=== PATIENT | female | born 1995 | race African-American/Black ===

== ENCOUNTER 2018-12-19 19:58 | Emergency (ER) | payer SELFPAY ==
[2018-12-19 20:22] LABS: Urine Blood NEGATIVE (NEG); Urine Glucose NEGATIVE (NEG); Urine Protein NEGATIVE (NEG); Urine Specific Gravity 1.025 (1.005-1.030)
[2018-12-19] MEDS ORDERED: NA CHLORIDE 0.9% 1,000 ML ONE (20:26)
[2018-12-19 20:36] LABS: Absolute Lymphocytes (CBC) 2.3 K/uL (0.7-4.9); Basophils % 0.4 % (0-1.3); Hematocrit 35.1 % (36.0-45.0); Lymphocytes % 28.7 % (15.3-44.8); MPV 7.9 fL (7.6-11.3); RBC Red Blood Cell Count 4.07 M/uL (3.86-4.86)
[2018-12-19 21:04] LABS: Urine Amorphous Sediment 2+ /HPF (NONE SEEN); Urine Bacteria 20-50 /HPF (<20); Urine Culture Reflex Order REFLEXED; Urine RBC <5 /HPF (NONE SEEN)
[2018-12-19 21:09] LABS: BUN Blood Urea Nitrogen 8 mg/dL (7-18); Bicarbonate 27 mmol/L (21-32); Glucose Level 75 mg/dL (74-106); HCG, Quantitative 30859 mIU/mL (1-3); Potassium 3.6 mmol/L (3.5-5.1); Sodium Level 141 mmol/L (136-145)
--- NOTE | 2018-12-19 22:03 | ER ---
Nurse's Notes [facility] Name: Kassidy Kwon Age: 23 yrs Sex: Female : 1995 Arrival Date: 12/19/2018 Time: 20:00 Bed 7 Private MD: Diagnosis: Less than 8 weeks gestation of ;Urinary tract infection, site not specified Presentation: 12/19 20:09 Presenting complaint: Patient states: Lower pelvic pain that began yesterday, severe lp1 pain today; States vaginal discharge yellow in color with foul odor; Has not had menstrual cycle since October. Transition of care: patient was not received from another setting of care. Onset of symptoms was December 19, 2018. Risk Assessment: Do you want to hurt yourself or someone else? Patient reports no desire to harm self or others. Initial Sepsis Screen: Does the patient meet any 2 criteria? No. Patient's initial sepsis screen is negative. Does the patient have a suspected source of infection? No. Patient's initial sepsis screen is negative. Care prior to arrival: None. 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 - Social history:: Smoking status: Patient/guardian denies using tobacco. - Ebola Screening: : No symptoms or risks identified at this time. Screenin:09 Abuse screen: Denies threats or abuse. Denies injuries from another. Nutritional rr5 screening: No deficits noted. Tuberculosis screening: No symptoms or risk factors identified. Fall Risk None identified. Total Jason Fall Scale indicates No Risk (0-24 pts). Assessment: 20:10 General: Appears in no apparent distress. uncomfortable, Behavior is calm, cooperative, rr5 appropriate for age. Pain: Complains of pain in pelvis Pain does not radiate. Pain currently is 10 out of 10 on a pain scale. Quality of pain is described as aching, Pain began gradually, Is intermittent. Neuro: Level of Consciousness is awake, alert, obeys commands, Oriented to person, place, time, situation, Appropriate for age. Cardiovascular: Capillary refill < 3 seconds Patient's skin is warm and dry. Respiratory: Airway is patent Respiratory effort is even, unlabored, Respiratory pattern is regular, symmetrical. GI: No signs and/or symptoms were reported involving the gastrointestinal system. : Reports discharge, malodorous, yellow, pain Pain is 10 out of 10 on a pain scale. pelvic area. EENT: No signs and/or symptoms were reported regarding the EENT system. Derm: Skin is intact, Skin temperature is warm. Musculoskeletal: Circulation, motion, and sensation intact. Capillary refill < 3 seconds. 21:00 Reassessment: Patient appears in no apparent distress at this time. Patient and/or rr5 family updated on plan of care and expected duration. Pain level reassessed. Patient is alert, oriented x 3, equal unlabored respirations, skin warm/dry/pink. awaiting for results. 22:13 Reassessment: Patient appears in no apparent distress at this time. Patient is alert, rr5 oriented x 3, equal unlabored respirations, skin warm/dry/pink. discharge instruction given and explained without complaints made. Patient denies pain at this time. Patient states feeling better. Patient states symptoms have improved. Vital Signs: 20:10 BP 111 / 81; Pulse 91; Resp 18; Temp 97.9(O); Pulse Ox 100% on R/A; Weight 63.05 kg; lp1 Height 5 ft. 9 in. (175.26 cm); Pain 10/10; 22:11 BP 108 / 82; Pulse 61; Resp 17; Temp 98.4(O); Pulse Ox 99% on R/A; rr5 22:12 Pain 0/10; tl1 20:10 Body Mass Index 20.53 (63.05 kg, 175.26 cm) lp1 ED Course: 20:00 Patient arrived in ED. ag3 20:02 [facility]C [facility] kb 20:02 Marquise Reeves MD is Attending Physician. kb 20:03 Jeff Denise RN is Primary Nurse. rr5 20:10 Triage completed. lp1 20:11 Arm band placed on. lp1 20:11 Patient has correct armband on for positive identification. Bed in low position. Call rr5 light in reach. Side rails up X2. Pulse ox on. NIBP on. 20:25 Inserted saline lock: 20 gauge in right antecubital area, using aseptic technique. rr5 Blood collected. 22:07 US Transvaginal Ob In Process Unspecified. EDMS 22:11 No provider procedures requiring assistance completed. IV discontinued, intact, tl1 bleeding controlled, No redness/swelling at site. Pressure dressing applied. Administered Medications: 20:28 Drug: NS 0.9% 1000 ml Route: IV; Rate: 1000 ml; Site: right antecubital; rr5 21:17 Follow up: IV Status: Completed infusion; IV Intake: 1000ml tl1 Intake: 21:17 IV: 1000ml; Total: 1000ml. tl1 Outcome: 22:03 Discharge ordered by . kb 22:14 Discharged to home ambulatory. rr5 22:14 Condition: stable 22:14 Discharge instructions given to patient, Instructed on discharge instructions, follow up and referral plans. medication usage, Demonstrated understanding of instructions, follow-up care, medications, Prescriptions given X 1. 22:14 Patient left the ED. rr5 Signatures: Dispatcher [employer] [facility] Chelsy Sanchez, COTTON GINNER HELPER-C COTTON GINNER HELPER-CkLatha Cha RN RN lp1 Mariama Cottrell RN RN tl1 Jelly Subramanian 3 Jeff Denise, RN RN rr5 Corrections: (The following items were deleted from the chart) 22:16 22:11 BP 141 / 71; Pulse 80bpm; Resp 17bpm; Pulse Ox 99% RA; Temp 98.4F Oral; tl1 rr5
--- NOTE | 2018-12-19 22:04 | EDPHYS ---
Physician Documentation [facility] Name: Kassidy Kwon Age: 23 yrs Sex: Female : 1995 Arrival Date: 12/19/2018 Time: 20:00 Bed 7 Private MD: ED Physician Marquise Reeves HPI: 12/19 20:23 This 23 yrs old Female presents to ER via Ambulatory with complaints of WAIST PAIN. kb 20:23 The patient presents with abdominal pain in the lower abdomen. Onset: The kb symptoms/episode began/occurred yesterday. The symptoms do not radiate. Associated signs and symptoms: none. The symptoms are described as sharp. Modifying factors: The symptoms are alleviated by nothing, the symptoms are aggravated by pressure, walking. Severity of pain: At its worst the pain was moderate severe in the emergency department the pain is unchanged. The patient has not experienced similar symptoms in the past. The patient has not recently seen a physician. 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 - Social history:: Smoking status: Patient/guardian denies using tobacco. - Ebola Screening: : No symptoms or risks identified at this time. ROS: 20:11 Constitutional: Negative for fever, chills, and weight loss, ENT: Negative for injury, kb pain, and discharge, Neck: Negative for injury, pain, and swelling, Cardiovascular: Negative for chest pain, palpitations, and edema, Respiratory: Negative for shortness of breath, cough, wheezing, and pleuritic chest pain, Back: Negative for injury and pain, : Negative for injury, bleeding, discharge, and swelling, MS/Extremity: Negative for injury and deformity, Skin: Negative for injury, rash, and discoloration, Neuro: Negative for headache, weakness, numbness, tingling, and seizure. 20:11 Abdomen/GI: Positive for abdominal pain. Exam: 20:10 Constitutional: This is a well developed, well nourished patient who is awake, alert, kb and in no acute distress. Head/Face: Normocephalic, atraumatic. Chest/axilla: Normal chest wall appearance and motion. Nontender with no deformity. No lesions are appreciated. Cardiovascular: Regular rate and rhythm with a normal S1 and S2. No gallops, murmurs, or rubs. Normal PMI, no JVD. No pulse deficits. Respiratory: Lungs have equal breath sounds bilaterally, clear to auscultation and percussion. No rales, rhonchi or wheezes noted. No increased work of breathing, no retractions or nasal flaring. Skin: Warm, dry with normal turgor. Normal color with no rashes, no lesions, and no evidence of cellulitis. MS/ Extremity: Pulses equal, no cyanosis. Neurovascular intact. Full, normal range of motion. Neuro: Awake and alert, GCS 15, oriented to person, place, time, and situation. Cranial nerves II-XII grossly intact. Motor strength 5/5 in all extremities. Sensory grossly intact. Cerebellar exam normal. Normal gait. 20:10 Abdomen/GI: Inspection: abdomen appears normal, Bowel sounds: normal, in all quadrants, Palpation: soft, in all quadrants, moderate abdominal tenderness, in the left lower quadrant, severe abdominal tenderness, in the right lower quadrant. Vital Signs: 20:10 BP 111 / 81; Pulse 91; Resp 18; Temp 97.9(O); Pulse Ox 100% on R/A; Weight 63.05 kg; lp1 Height 5 ft. 9 in. (175.26 cm); Pain 10/10; 22:11 BP 108 / 82; Pulse 61; Resp 17; Temp 98.4(O); Pulse Ox 99% on R/A; rr5 22:12 Pain 0/10; tl1 20:10 Body Mass Index 20.53 (63.05 kg, 175.26 cm) lp1 MDM: 20:02 Patient medically screened. kb 20:10 Data reviewed: vital signs, nurses notes. Data interpreted: Pulse oximetry: on room air kb is 100 %. Interpretation: normal. 22:02 Counseling: I had a detailed discussion with the patient and/or guardian regarding: the kb historical points, exam findings, and any diagnostic results supporting the discharge/admit diagnosis, lab results, radiology results, the need for outpatient follow up, an OB/Gyne specialist, to return to the emergency department if symptoms worsen or persist or if there are any questions or concerns that arise at home. 12/19 20:15 Order name: Quantitative Hcg; Complete Time: 21:17 kb 12/19 20:15 Order name: Abo/rh Typing; Complete Time: 20:58 kb 12/19 20:15 Order name: Basic Metabolic Panel; Complete Time: 21:17 kb 12/19 20:15 Order name: CBC with Diff; Complete Time: 20:43 kb 12/19 20:15 Order name: Urine Microscopic Only; Complete Time: 21:09 kb 12/19 20:16 Order name: Urine --Ancillary (enter results); Complete Time: 20:23 kb 12/19 20:08 Order name: Urine Dipstick-Ancillary (obtain specimen); Complete Time: 20:16 kb 12/19 20:09 Order name: Urine Test (obtain specimen); Complete Time: 20:16 kb 12/19 20:15 Order name: IV Saline Lock; Complete Time: 20:28 kb 12/19 20:15 Order name: Labs collected and sent; Complete Time: 20:28 kb 12/19 20:16 Order name: Urine Dipstick--Ancillary (enter results); Complete Time: 20:23 kb 12/19 20:17 Order name: US Transvaginal Ob kb 12/19 21:08 Order name: Urine Culture EDMS 12/19 20:15 Order name: NPO; Complete Time: 20:28 kb Administered Medications: 20:28 Drug: NS 0.9% 1000 ml Route: IV; Rate: 1000 ml; Site: right antecubital; rr5 21:17 Follow up: IV Status: Completed infusion; IV Intake: 1000ml tl1 Disposition: 23:51 Co-signature as Attending Physician, Marquise Reeves MD. pkl Disposition: 12/19/18 22:03 Discharged to Home. Impression: Less than 8 weeks gestation of , Urinary tract infection, site not specified. - Condition is Stable. - Discharge Instructions: First Trimester of , [id number], and Urinary Tract Infection. - Prescriptions for Macrobid 100 mg Oral Capsule - take 1 capsule by ORAL route every 12 hours for 5 days; 10 capsule. - Medication Reconciliation Form, Thank You Letter, Antibiotic Education, Prescription Opioid Use form. - Follow up: Emergency Department; When: As needed; Reason: Worsening of condition. Follow up: Private Physician; When: 2 - 3 days; Reason: Recheck today's complaints, Continuance of care, Re-evaluation by your physician. Signatures: Dispatcher [employer] Chelsy Hayes, FIOR PASCUAL-Marquise Dumont MD MD pkl Pena, Laura, RN RN lp1 Jeff Denise RN RN rr5 Mariama Cottrell RN tl1 Corrections: (The following items were deleted from the chart) 22:03 22:03 12/19/2018 22:03 Discharged to Home. Impression: Less than 8 weeks gestation of kb . Condition is Stable. Forms are Medication Reconciliation Form, Thank You Letter, Antibiotic Education, Prescription Opioid Use. Follow up: Emergency Department; When: As needed; Reason: Worsening of condition. Follow up: Private Physician; When: 2 - 3 days; Reason: Recheck today's complaints, Continuance of care, Re-evaluation by your physician. 22:14 22:03 12/19/2018 22:03 Discharged to Home. Impression: Less than 8 weeks gestation of rr5 ; Urinary tract infection, site not specified. Condition is Stable. Discharge Instructions: First Trimester of , [id number]. Forms are Medication Reconciliation Form, Thank You Letter, Antibiotic Education, Prescription Opioid Use. Follow up: Emergency Department; When: As needed; Reason: Worsening of condition. Follow up: Private Physician; When: 2 - 3 days; Reason: Recheck today's complaints, Continuance of care, Re-evaluation by your physician.
--- NOTE | 2018-12-20 07:47 | RAD REPORT ---
EXAM DESCRIPTION: US - Transvaginal OB - 12/19/2018 10:07 pm CLINICAL HISTORY: with pelvic pain COMPARISON: None. FINDINGS: The uterus measures with 11 x 6 x 7 centimeters. A normal appearing gestational sac is pr esent within the endometrium. Within this is a yolk sac and pole with a crown-rump length 0.9 c entimeters. Cardiac activity 125 beats per minute. 0.6 centimeter round fluid collection lies adjacent to the gestational sac Right and left ovary appear normal. . An adnexal mass is not noted. No significant free fluid is seen. IMPRESSION: Viable Intrauterine with an estimated gestational age 7 weeks 0 days BERHANE 08/06. 4 millimeter round fluid collection adjacent to the gestational sac probably representing a small sub chorionic bleed. Less likely this represents an abnormal second gestational sac. This can be monitore d on subsequent examination
== END 2018-12-19 22:14 | disposition home or self-care (01) ==
LOC: ER 19:58
DX: O23.41 Unspecified infection of urinary tract in pregnancy, first trimester (principal); Z3A.01 Less than 8 weeks gestation of pregnancy
CPT/HCPCS: 36415; 76817; 80048; 81003; 81015; 81025; 84702; 85025; 86900; 86901; 87086; 87088; 96360; 99284; J7030